=== PATIENT | female | born 1950 | race Caucasian/White ===

== ENCOUNTER 2019-05-11 12:23 | Day surgery (SDC) | payer OTHER ==
[~2019-05-11] VITALS: Ht 144.8 cm; Wt 66.1 kg
[~2019-05-11 12:23] MED LIST: aspirin; levothyroxine; metformin; simvastatin
[2019-05-11 14:22] VITALS: Ht 144.8 cm; Wt 66.1 kg
[2019-05-11 15:10] VITALS: BP 192/87; PULSE 83; RESP 18
[2019-05-11] MEDS ORDERED: MIDAZOLAM 1 MG/ML 2 ML INJ ONE ×2 (16:13)
[2019-05-11] MEDS ORDERED: FENTAnyl 50 MCG/ML VIAL ONE (16:13)
[2019-05-11 16:30] VITALS: BP 119/58; RESP 20
== END 2019-05-11 16:50 | disposition home or self-care (01) ==
LOC: GIL 12:23
PROVIDERS: ATTEND Internal Medicine
DX: Z12.11 Encounter for screening for malignant neoplasm of colon (principal); D12.7 Benign neoplasm of rectosigmoid junction; D12.5 Benign neoplasm of sigmoid colon; E11.9 Type 2 diabetes mellitus without complications; M12.9 Arthropathy, unspecified; I10 Essential (primary) hypertension
CPT/HCPCS: 45380; 82962; J2250; J3010; Z7610; 88305